=== PATIENT | female | born 1990 | race Two or more races ===

== ENCOUNTER 2018-05-19 00:59 | Emergency (ER) | payer OTHER ==
[~2018-05-19] VITALS: Ht 154.9 cm; Wt 89.8 kg
[2018-05-19] MEDS ORDERED: FORTAMET500 MG (01:18)
== END 2018-05-19 13:58 | disposition home or self-care (01) ==
LOC: ER 00:59
DX: S30.0XXA Contusion of lower back and pelvis, initial encounter (principal); S90.01XA Contusion of right ankle, initial encounter; V43.02XA Car driver injured in collision with other type car in nontraffic accident, initial encounter; Y93.89 Activity, other specified; Y92.488 Other paved roadways as the place of occurrence of the external cause; Y99.8 Other external cause status